=== PATIENT | male | born 1985 | race Caucasian/White ===

== ENCOUNTER 2017-05-24 14:48 | Emergency (ER) | payer SELFPAY ==
[~2017-05-24] VITALS: Ht 185.4 cm; Wt 99.8 kg
[2017-05-24] MEDS ORDERED: LISI-552 PO (15:24)
--- NOTE | 2017-05-24 15:24 | ED General ---
General Chief Complaint: Cardiac/General Problems Stated Complaint: BP IS HIGH Source of Information: Patient Exam Limitations: No Limitations History of Present Illness Time Seen by Provider: 15:20 Initial Comments Here with report of needing blood pressure medication refill. He is new to the community and he is out of his lisinopril and would like to have that refilled. He went to the [facility] and he was unable to pay the upfront the so came here. He knows he needs a primary care doctor. Denies any other complaints or concerns except for knowing his blood pressure is elevated. Timing/Duration: 1 Week Associated Systoms: No Chest Pain, No Nausea/Vomiting, No Shortness of Air Constitutional: see HPI, No chills, No fever Respiratory: no symptoms reported Cardiovascular: see HPI, No chest pain Gastrointestinal: no symptoms reported Psychiatric/Neurological: No Symptoms Reported Past Gicmtxi-Unqfkb-Thwbcp Hx Patient Social History Alcohol Use: Denies Use Recreational Drug Use: Yes Smoking Status: Never a Smoker Recent Foreign Travel: No Contact w/Someone Who Travel: No Surgeries HX Surgeries: Yes Surgeries: Gallbladder Cardiovascular Cardiac Disorders: Hypertension Reviewed Nursing Assessment Reviewed/Agree w Nursing PMH: Yes Physical Exam Vital Signs Capillary Refill : General Appearance: No Apparent Distress, WD/WN Respiratory: Lungs Clear, Normal Breath Sounds Cardiovascular: Regular Rate, Rhythm, No Murmur Neurologic/Psychiatric: Alert, Oriented x3 Progress/Results/Core Measures Progress Note : Progress Note Seen and evaluated. Counseled on the need for primary care physician. We will provide a refill. Also counseled on the need for follow-up laboratory as lisinopril is not without it's wrist. Patient verbalize understanding. Discharge home with return precautions. Patient verbalize understanding instructions and agreement with Plan Departure Impression Impression: Primary Impression: Hypertension, uncontrolled Disposition: 01 HOME, SELF-CARE Condition: Improved Departure-Patient Inst. Decision time for Depature: 15:22 Referrals: NO,LOCAL PHYSICIAN (PCP/Family) Primary Care Physician Patient Instructions: High Blood Pressure (DC) Add. Discharge Instructions: All discharge instructions reviewed with patient and/or family. Voiced understanding. Take medications as directed. Get a local doctor JAS. You have 30 days of medication available to on this refill but will need a local physician to refill this medicine. Return for worsening, fever, vomiting, weakness, breathing problems or other concerns as needed. Scripts Lisinopril (Lisinopril) 20 Mg Tablet 20 MG PO DAILY, #30 TAB 0 Refills Prov: KATIA ARCE MD 05/24/17 KATIA ARCE MD May 24, 2017 15:24
[2017-05-24 15:26] VITALS: BP 186/103
== END 2017-05-24 15:26 | disposition home or self-care (01) ==
LOC: ER 14:51
DX: I10 Essential (primary) hypertension (principal)
CPT/HCPCS: 99283

== ENCOUNTER 2018-06-29 09:44 | Emergency (ER) | payer SELFPAY ==
[~2018-06-29] VITALS: Ht 182.9 cm; Wt 106.6 kg
[~2018-06-29 09:44] MED LIST: LISI-552 PO
--- OUTSIDE RECORDS SUMMARY | 2018-06-29 09:50 | XMS REPORT ---
Author Author JOAO ALETHEA Organization [facility] Address [address] [place] [address] Care Team Providers Care Primary Teacher Name Role Phone SHEPHERDALETHEA Guerrero Unavailable PROBLEMS Type Condition ICD9-CM Code [id number] Code Onset Dates Condition Status SNOMED Code Problem Tobacco abuse counseling Z71.6 Active 231003816 Problem Tobacco abuse Z72.0 Active 240495763 Problem Essential hypertension I10 Active 86074871 ALLERGIES No Known Allergies ENCOUNTERS Encounter Location Date Diagnosis [facility] [address], [place] [address] February, [facility] [address] [place] [phone] Aug, [facility] [address] [place] [address] Jun, Encounter to establish care Z76.89 ; Essential hypertension I10 ; Tobacco abuse Z72.0 and Tobacco abuse counseling Z71.6 [facility] [id number], [place] [address] Jun, IMMUNIZATIONS No Known Immunizations SOCIAL HISTORY Never Assessed REASON FOR VISIT PMH obtained. Azul HOGUE PLAN OF CARE VITAL SIGNS MEDICATIONS Medication Instructions Dosage Frequency Start Date End Date Duration Status Lisinopril 20 MG Orally Once a day 1 tablet 24h Active RESULTS No Results PROCEDURES No Known procedures INSTRUCTIONS MEDICATIONS ADMINISTERED No Known Medications MEDICAL (GENERAL) HISTORY Type Description Date Medical History hypertension Medical History social anxiety disorder Surgical History cholecystectomy 2013 Hospitalization History Surgery(s) only
--- OUTSIDE RECORDS SUMMARY | 2018-06-29 09:50 | XMS REPORT ---
Author Author JOAO ALETHEA Organization [facility] Address [address] [place] [address] Care Team Providers Care Contour Stitcher Name Role Phone SHEPHERDALETHEA uGerrero Unavailable PROBLEMS Type Condition ICD9-CM Code IMI18-GN Code Onset Dates Condition Status SNOMED Code Problem Tobacco abuse counseling Z71.6 Active 249154145 Problem Tobacco abuse Z72.0 Active 622229155 Problem Essential hypertension I10 Active 37293286 ALLERGIES No Known Allergies ENCOUNTERS Encounter Location Date Diagnosis [facility] [address] [place] [phone] February, [facility] [id number] [place] [phone] Aug, [facility] [address] [place] [address] Jun, Encounter to establish care Z76.89 ; Essential hypertension I10 ; Tobacco abuse Z72.0 and Tobacco abuse counseling Z71.6 [facility] [address] [place] [phone] Jun, 2017 IMMUNIZATIONS No Known Immunizations SOCIAL HISTORY Never Assessed REASON FOR VISIT Establish Care, pt. needing refill on lisinopril---LEN Rascon PLAN OF CARE Activity Details Follow Up 3 Months Reason:HTN VITAL SIGNS Height 71 in 2017-06-25 Weight 238.7 lbs 2017-06-25 Temperature 98.6 degrees Fahrenheit 2017-06-25 Heart Rate 90 bpm 2017-06-25 Respiratory Rate 22 2017-06-25 BMI 33.29 kg/m2 2017-06-25 Blood pressure systolic 139 mmHg 2017-06-25 Blood pressure diastolic 82 mmHg 2017-06-25 MEDICATIONS Medication Instructions Dosage Frequency Start Date End Date Duration Status Lisinopril 20 mg Orally Once a day 1 tablet 24h 90 days Active RESULTS No Results PROCEDURES No Known procedures INSTRUCTIONS MEDICATIONS ADMINISTERED No Known Medications MEDICAL (GENERAL) HISTORY Type Description Date Medical History hypertension Medical History social anxiety disorder Surgical History cholecystectomy 2013 Hospitalization History Surgery(s) only
--- OUTSIDE RECORDS SUMMARY | 2018-06-29 09:50 | XMS REPORT ---
Author Author ALETHEA SHEPHERD Organization [facility] Address [address] [place] [address] Care Team Providers Care Rug Hooker Hand Name Role Phone SHEPHERDALETHEA Guerrero Unavailable PROBLEMS Type Condition ICD9-CM Code XWB38-NL Code Onset Dates Condition Status SNOMED Code Problem Tobacco abuse counseling Z71.6 Active 156383595 Problem Tobacco abuse Z72.0 Active 327127632 Problem Essential hypertension I10 Active 80072720 ALLERGIES No Information ENCOUNTERS Encounter Location Date Diagnosis [facility] [address] [place] [phone] Aug, [facility] [address] [place] [address] Jun, Encounter to establish care Z76.89 ; Essential hypertension I10 ; Tobacco abuse Z72.0 and Tobacco abuse counseling Z71.6 [facility] [address] [place] [address] Jun, IMMUNIZATIONS No Known Immunizations SOCIAL HISTORY Never Assessed REASON FOR VISIT Phone Call PLAN OF CARE VITAL SIGNS MEDICATIONS Unknown Medications RESULTS No Results PROCEDURES No Known procedures INSTRUCTIONS MEDICATIONS ADMINISTERED No Known Medications MEDICAL (GENERAL) HISTORY Type Description Date Medical History hypertension Medical History social anxiety disorder Surgical History cholecystectomy 2013 Hospitalization History Surgery(s) only
--- NOTE | 2018-06-29 10:28 | ED Upper Extremity ---
General Chief Complaint: Upper Extremity Stated Complaint: NOT ABLE TO USE R ARM,CANT BEND IT Nursing Triage Note: PT PRESENTS TO ER WITH COMPLAINT OF RIGHT ARM PAIN THAT STARTED SATURDAY WHILE AT WORK. PT DENIES INJURY. STATES HE HAS TRIED ICE, IBUPROFEN, AND ASPERCREME WITH NO RELIEF. Nursing Sepsis Screen: No Definite Risk Source: patient History of Present Illness Date Seen by Provider: Jun 29, 2018 Time Seen by Provider: 10:24 Initial Comments The patient is a 33-year-old white male. He presents with complaints of right arm pain particularly about the elbow and difficulty straightening his arm. He works at [employer] and lives pain subclass repeatedly. He states that they have a binder that they pulled tight by hand immigration guard with stress on the arm as well. He is right-handed. He does not describe numbness or tingling. Onset: other (48 hours) Pain/Injury Location: right arm, right elbow Method of Injury: unknown Allergies and Home Medications Allergies Coded Allergies: No Known Drug Allergies (Unverified , 05/24/17) Home Medications Lisinopril 20 Mg Tablet, 20 MG PO DAILY Prescribed by: KATIA ARCE on 05/24/17 1524 Patient Home Medication List Home Medication List Reviewed: Yes Review of Systems Constitutional: see HPI EENTM: no symptoms reported Respiratory: no symptoms reported Cardiovascular: no symptoms reported Gastrointestinal: no symptoms reported Genitourinary: no symptoms reported Musculoskeletal: muscle pain, muscle stiffness Skin: no symptoms reported Psychiatric/Neurological: No Symptoms Reported Past Tcgvfdm-Neivmk-Gnwttu Hx Patient Social History Alcohol Use: Denies Use Recreational Drug Use: No Smoking Status: Current Everyday Smoker Type Used: Cigarettes 2nd Hand Smoke Exposure: Yes Recent Foreign Travel: No Contact w/Someone Who Travel: No Recent Infectious Disease Expo: No Recent Hopitalizations: No Immunizations Up To Date Tetanus Booster (TDap): Unknown PED Vaccines UTD: Yes Seasonal Allergies Seasonal Allergies: No Past Medical History Surgeries: Yes Gallbladder Cardiac: Yes Hypertension Genitourinary: No Psychosocial: No Integumentary: No Physical Exam Vital Signs Vital Signs - First Documented 06/29/18 09:52 Temp 98.0 Pulse 84 Resp 20 B/P (MAP) 138/87 (104) Pulse Ox 97 O2 Delivery Room Air Capillary Refill : Less Than 3 Seconds Height, Weight, BMI Height: 6'0" Weight: 235lbs. oz. 106.288967pg; BMI Method:Stated General Appearance: WD/WN, no apparent distress HEENT: normal ENT inspection Neck: full range of motion Cardiovascular: normal peripheral pulses, regular rate, rhythm, no edema, no gallop, no JVD, no murmur Respiratory: chest non-tender, lungs clear, normal breath sounds, no respiratory distress, no accessory muscle use Gastrointestinal: normal bowel sounds The right biceps is firm at rest. I cannot fully extend him at the elbow with passive motion. There is some firmness in the proximal forearm and some resistance to supination and pronation. The left arm feels normal and is able to fully extend at the elbow and supinate and pronate at the elbow and wrist Progress/Results/Core Measures Results/Orders Lab Results Laboratory Tests Test 06/29/18 10:54 Range/Units Myoglobin 42.5 10.0-92.0 NG/ML My Orders Orders - NONA BRADLEY MD Myoglobin Serum (06/29/18 10:28) Elbow, Right, 3 Views (06/29/18 10:28) Vital Signs/I&O 06/29/18 09:52 Temp 98.0 Pulse 84 Resp 20 B/P (MAP) 138/87 (104) Pulse Ox 97 O2 Delivery Room Air Blood Pressure Mean: 104 Departure Communication (Admissions) [address] Clint alvarez on-call. He believes from my physical findings that this probably represents biceps tendinitis distally or perhaps a small tear. He gave recommendations for treatment and will see him Saturday in his [place] [facility]. Impression Primary Impression: biceps tendinitis Disposition: 01 HOME, SELF-CARE Condition: Stable/Unchanged Departure-Patient Inst. Decision time for Depature: 11:57 Referrals: [facility]ST[facility] (PCP) Primary Care Physician ALETHEA SHEPHERD APRN (Family) Primary Care Physician Patient Instructions: How to Use a Shoulder Sling Add. Discharge Instructions: All discharge instructions reviewed with patient and/or family. Voiced understanding. Wear sling went out and about. He may remove it when quiet and at home. Take ibuprofen and prednisone as prescribed. Call ortho [address] [place] [address] in [place] tomorrow for an appointment to see Dr. Jaramillo in the [facility] on Saturday. That phone number is [phone] Scripts Prednisone (Prednisone) 20 Mg Tab 20 MG PO DAILY, #9 TAB 2 tablets daily beginning today for 3 days. Then 1 tablet daily for 3 days Prov: NONA BRADLEY MD 06/29/18 Ibuprofen (Ibuprofen) 600 Mg Tablet 600 MG PO Q6H PRN for PAIN, #30 TAB Prov: NONA BRADLEY MD 06/29/18 NONA BRADLEY MD Jun 29, 2018 10:28
[2018-06-29] MEDS ORDERED: PRD20T PO (12:03)
[2018-06-29] MEDS ORDERED: IBUP-1773 PO (12:03)
[2018-06-29 12:27] VITALS: BP 138/87
--- NOTE | 2018-06-29 12:28 | Diagnostic Imaging Report ---
INDICATION: Right elbow pain with limited range of motion. COMPARISON: None available. TECHNIQUE: Three views of the right elbow were obtained. FINDINGS: Possible small elbow joint effusion. No fracture or traumatic malalignment. No mineralized intra-articular bodies. IMPRESSION: 1. Possible small elbow joint effusion without definitive fracture. In the absence of trauma, this may be due to an inflammatory process. If the patient has had recent trauma, then occult fracture could be present and conservative management should be utilized. Dictated by: Dictated on workstation # [id number]
== END 2018-06-29 12:27 | disposition home or self-care (01) ==
LOC: EDUNIT# 09:44 → ER 09:46
DX: M75.21 Bicipital tendinitis, right shoulder (principal); I10 Essential (primary) hypertension; F17.210 Nicotine dependence, cigarettes, uncomplicated; Z77.22 Contact with and (suspected) exposure to environmental tobacco smoke (acute) (chronic)
CPT/HCPCS: 36415; 73080; 83874